=== PATIENT | female | born 1950 | race Caucasian/White ===

== ENCOUNTER → 2018-03-02 | Day surgery (SDC) | payer OTHER ==
--- NOTE | 2018-02-28 12:49 | Diagnostic Imaging Report ---
PROCEDURE: X-RAY CHEST, TWO VIEWS COMPARISON: None. INDICATIONS: PREOPERATIVE CHEST XRAY FOR FOOT SURGERY FINDINGS: LUNGS: No consolidations or edema. PLEURA: No effusions or pneumothorax. HEART \T\ MEDIASTINUM: The heart is within normal size-limits. BONES \T\ SOFT TISSUES: No acute findings. CONCLUSION: No acute thoracic abnormality. Dictated by: Ken Mejia M.D. on 02/28/2018 at 12:51 Electronically approved by: Ken Mejia M.D. on 02/28/2018 at 12:51
[~2018-03-02] MED LIST: ACETAMINOPHEN 1000 MG/100 ML 100 ML IV ONE; AMITRIPTYLINE H50 MG PO; AMLODIPINE BESYL5 MG PO; ASPIRIN81 MG PO; BENAZEPRIL HCL10 MG PO; BUPIVACAINE HCL 0.5% 10ML MPF VIAL INJ ONE; CEFAZOLIN SOD 2 GM/D5W 50ML 50 ML IV ONE; DEXAMETHASONE SOD PHOS INJ 4 MG/ML VIAL ONE; DICYCLOMINE HCL20 MG PO; DIPHENHYDRAMINE25 M1 PO; FENOFIBRATE145 MG PO; FENTANYL CITRATE/PF 100MCG/2 ML INJ ONE; GABAPENTIN300 MG PO; KETOROLAC TROMETHAMINE 30 MG/ML VIAL ONE; LEVOCETIRIZINE D5 MG PO; LEVOTHYROXINE100 MC1 PO; MAGNESIUM250 M1 PO; MIRAPEX0.25 MG PO; OMEPRAZOLE40 MG PO; ONDANSETRON HCL INJ 2 MG/ML VIAL ONE; POTASSIUM99 M1 PO; PROPOFOL IV EMULSION 10 MG/ML 20 ML VIAL ONE; SERTRALINE HCL100 MG PO; SEVOFLURANE INHAL SOLN 250 ML PEN BTL ONE; TIZANIDINE HCL4 M1 PO; TYLENOL # 31 EA PO; VITAMIN D35000 UNIT PO; [UNRECOGNIZED DRUG - OTHER] PO; [UNRECOGNIZED DRUG - OTHER] PO; [UNRECOGNIZED DRUG - OTHER] PO
--- OUTSIDE RECORDS SUMMARY | 2018-03-02 07:19 | XMS REPORT ---
Author Author [facility] Address Unknown Phone Unavailable Care Team Providers Care Churn Operator Margarine Name Role Phone MARISSA CANTOR Unavailable Unavailable Problems This patient has no known problems. Allergies, Adverse Reactions, Alerts This patient has no known allergies or adverse reactions. Medications This patient has no known medications. Results Test Description Test Time Test Comments Text Results Atomic Results Result Comments CHEST 2 VIEWS [place] [address] [place] [address] Patient Name: JOVI MAURER MR #: [id number] : 1950 Age/Sex: 67/F Req #: [id number] Adm Physician: Ordered by: MARISSA CANTOR DPM Report #: [id number] Location: OR Room/Bed: Procedure: [id number] DX/CHEST 2 VIEWS Exam Date: 02/28/18 Exam Time : 1230 REPORT STATUS: Signed PROCEDURE: X-RAY CHEST, TWO VIEWS COMPARISON: None. INDICATIONS: PREOPERATIVE CHEST XRAY FOR FOOT SURGERY FINDINGS: LUNGS: No consolidations or edema. PLEURA: No effusions or pneumothorax. HEART T MEDIASTINUM: The heart is within normal size-limits. BONES T SOFT TISSUES: No acute findings. CONCLUSION: No acute thoracic abnormality. Dictated by: Varun Hastings M.D. on 02/28/2018 at 12:51 Electronically approved by: Varun Hastings M.D. on 02/28/2018 at 12:51 Dictated By: VARUN HASTINGS MD 125 Transcribed By: SASHA on 02/28/18 1251 COPY TO: MARISSA CANTOR DPM
--- OUTSIDE RECORDS SUMMARY | 2018-03-02 07:19 | XMS REPORT | Clinical Summary ---
Author Author [facility] Address Unknown Phone Unavailable Care Team Providers Care Grades 1 Through 5 Teacher Name Role Phone Shine Ponce DO PCP Allergies No Known Allergies Current Medications Prescription Sig. Disp. Refills Start End Date Status Date acetaminophen-codeine 01/01/20 Active (TYLENOL WITH CODEINE #4) 18 300-60 mg per tablet amitriptyline (ELAVIL) 50 12/26/19 Active MG tablet 18 benazepril (LOTENSIN) 20 12/25/19 Active MG tablet 18 dicyclomine (BENTYL) 20 11/29/19 Active mg tablet 18 fenofibrate micronized 12/26/19 Active (LOFIBRA) 134 MG capsule 18 gabapentin (NEURONTIN) 12/27/19 Active 300 mg capsule 18 levothyroxine (SYNTHROID, 12/26/19 Active LEVOXYL) 125 mcg tablet 18 omeprazole (PriLOSEC) 40 12/26/19 Active MG capsule 18 sertraline (ZOLOFT) 100 12/26/19 Active MG tablet 18 tiZANidine (ZANAFLEX) 4 11/29/19 Active MG tablet 18 multivitamin with Take 1 tablet by mouth Active minerals tablet daily. 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); Anosmia 01/16/2018 Hospital Radiology Clarisa Villar MD Mixed hearing loss, Encounter bilateral 01/16/2018 Hospital Radiology Clarisa Villar MD Anosmia Encounter 01/03/2018 Office Visit Otolaryngology Clarisa Villar MD Anosmia ( Primary Dx); Mixed hearing loss, bilateral after 03/01/2017 Social History Tobacco Use Types Packs/Day Years Used Date Never Smoker Smokeless Tobacco: Never Used Alcohol Use Drinks/Week oz/Week Comments Yes 3 Shots of 1.8 liquor Sex Assigned at Date Recorded Not on file Last Filed Vital Signs Vital Sign Reading Time Taken Blood Pressure 175/88 02/28/2018 1:10 PM CDT Pulse 67 02/28/2018 1:10 PM CDT Temperature - - Respiratory Rate - - Oxygen Saturation - - Inhaled Oxygen - - Concentration Weight 60.3 kg (133 lb) 02/28/2018 1:10 PM CDT Height 160 cm (5' 3") 02/28/2018 1:10 PM CDT Body Mass Index 23.56 02/28/2018 1:10 PM CDT Plan of Treatment Health Maintenance Due Date Last Done Comments CERVICAL CANCER SCREENING 1973 BREAST CANCER SCREENING 2002 COLON CANCER SCREENING 2002 SHINGRIX VACCINE (#1) 2002 ZOSTER VACCINE 2012 PNEUMOCOCCAL 2017 POLYSACCHARIDE VACCINE AGE 65 AND OVER PNEUMOCOCCAL-13 2017 INFLUENZA VACCINE 05/02/2018 Results * CT Temporal Bone Wo Contrast (01/16/2018 12:53 PM) Specimen Performing Laboratory [facility] [address] [place] [address] Narrative EXAMINATION:CT TEMPORAL BONE WO CONTRAST COMPARISON:None CLINICAL HISTORY: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 Up to date CT equipment and radiation dose reduction technique were utilized. FINDINGS: The external and internal auditory canals are unremarkable. The mastoids and middle ear clefts are clear. The ossicles demonstrate a normal relationship to each other and the oval windows. The cochleas and labyrinthes are unremarkable. There is no evidence of enlarged vestibular aqueduct. There is no dehiscence of bone over both superior semicircular canals worse on the left. IMPRESSION: Dehiscence of bone over the bilateral superior semicircular canals left greater than right. 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 Up to date CT equipment and radiation dose reduction technique were utilized. FINDINGS: The external and internal auditory canals are unremarkable. The mastoids and middle ear clefts are clear. The ossicles demonstrate a normal relationship to each other and the oval windows. The cochleas and labyrinthes are unremarkable. There is no evidence of enlarged vestibular aqueduct. There is no dehiscence of bone over both superior semicircular canals worse on the left. IMPRESSION: Dehiscence of bone over the bilateral superior semicircular canals left greater than right. [id number] * CT Sinus Wo Contrast (01/16/2018 11:00 AM) Specimen Performing Laboratory [facility] [address] [place] [address] Narrative EXAMINATION: CT SINUS WO CONTRAST CLINICAL HISTORY: R43.0 Anosmia, anosmia COMPARISON:None TECHNIQUE: Axial noncontrast enhanced images were obtained through the paranasal sinuses. Bone and soft tissue windows were displayed as well as coronal and sagittal reconstructed images.CT imaging was performed with iterative reconstruction technique and/or automated exposure control to reduce radiation dose. FINDINGS: Trace polypoid mucosal thickening of the inferior maxillary sinuses. The sphenoid, ethmoid, and left frontal sinus are clear except for trace mucosal thickening of the left frontal recess. Hypoplastic right frontal sinus. No lesion is identified in the anterior cranial fossa. Patency of the bilateral ostiomeatal units, frontoethmoidal recesses, and sphenoethmoidal recesses. Evaluation the nasal cavity demonstrates no evidence of mass or ulceration. Mild rightward nasal septal deviation. Status post bilateral lens extractions. Orbital contents are otherwise unremarkable. Limited evaluation the visualized intracranial contents demonstrates age-related changes. IMPRESSION: Trace sinus inflammatory changes, as detailed above. Patency of the bilateral sinonasal drainage pathways. [id number] Procedure Note Interface, Radiology Results Incoming - 01/16/2018 1:16 PM CDT EXAMINATION: CT SINUS WO CONTRAST CLINICAL HISTORY: R43.0 Anosmia, anosmia COMPARISON: None TECHNIQUE: Axial noncontrast enhanced images were obtained through the paranasal sinuses. Bone and soft tissue windows were displayed as well as coronal and sagittal reconstructed images. CT imaging was performed with iterative reconstruction technique and/or automated exposure control to reduce radiation dose. FINDINGS: Trace polypoid mucosal thickening of the inferior maxillary sinuses. The sphenoid, ethmoid, and left frontal sinus are clear except for trace mucosal thickening of the left frontal recess. Hypoplastic right frontal sinus. No lesion is identified in the anterior cranial fossa. Patency of the bilateral ostiomeatal units, frontoethmoidal recesses, and sphenoethmoidal recesses. Evaluation the nasal cavity demonstrates no evidence of mass or ulceration. Mild rightward nasal septal deviation. Status post bilateral lens extractions. Orbital contents are otherwise unremarkable. Limited evaluation the visualized intracranial contents demonstrates age-related changes. IMPRESSION: Trace sinus inflammatory changes, as detailed above. Patency of the bilateral sinonasal drainage pathways. [id number] after 03/01/2017 Insurance Payer Benefit Subscriber ID Type Phone Address Plan / Group [employer] xxxxxxxxx [facility] [place] [address]
--- NOTE | 2018-03-02 17:54 | Operative Report ---
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 TITLE OF OPERATION: Modified Matt bunionectomy of the right foot. PROCEDURE IN DETAIL: The patient was taken to the operating room in a mildly sedated state and placed on the operating table in supine position. Following induction of general anesthetic, the right lower extremity was elevated to 60 degrees to exsanguinate before inflating the pneumatic thigh tourniquet to 350 mmHg to create hemostasis. The 1st metatarsophalangeal joint was approached. A linear longitudinal incision was placed. Head of the 1st metatarsal was delivered into the surgical site and remodeled utilizing an oscillating saw. Conjoined tendon of the adductor hallucis muscle was identified and tenotomized. A [id number] V osteotomy was placed with the apex distally and base proximally to allow for relative shift lateral-zuñiga of the head of the more proximal segment, which was then impacted and stabilized, remodeled utilizing an oscillating saw, rotary bur. The area was irrigated with copious amounts of sterile saline solution. Deep closure was 3-0 Vicryl. Subcutaneous closure 4-0 Vicryl. Skin closure 4-0 nylon. Human tissue allograft was injected to facilitate healing in this patient who has moderate PAD with some degree of osteoarthritis. The head of the 1st metatarsal was drilled with subchondral drilling to facilitate fibrocartilage production. The patient is to return to see me within 1 week postoperatively. Job#: [id number]
== END | disposition home or self-care (01) ==
LOC: OR 07:16
PROVIDERS: ATTEND Podiatrist Foot Surgery
DX: M20.11 Hallux valgus (acquired), right foot (principal); K21.9 Gastro-esophageal reflux disease without esophagitis; K58.9 Irritable bowel syndrome, unspecified; I10 Essential (primary) hypertension; E78.5 Hyperlipidemia, unspecified; F32.9 Major depressive disorder, single episode, unspecified; Z01.810 Encounter for preprocedural cardiovascular examination; Z01.818 Encounter for other preprocedural examination; Z79.82 Long term (current) use of aspirin
CPT/HCPCS: 28296; 71046; 93005; J1100; J1885; J2405; 76000